=== PATIENT | female | born 2000 | race Caucasian/White ===

== ENCOUNTER 2021-08-09 18:36 | Emergency (ER) | payer OTHER ==
[~2021-08-09 18:36] MED LIST: COLACE 100MG C100 MG PO; IBUPROFEN600 MG PO; LORTAB 5-325 M1 EACH PO; PRENATAL VITAM1 EAC8 PO
[2021-08-09 19:32] LABS: HEMOGLOBIN 11.4 gm/dl (12.3-15.3); RED BLOOD COUNT 3.62 M/UL (4.00-5.10)
[2021-08-09 19:41] LABS: BUN/CREATININE RATIO 13 (0-10)
== END 2021-08-09 21:20 | disposition left against medical advice (07) ==
LOC: EDSTATUS 18:36 → ER1 18:36
PROVIDERS: Emergency Medicine
DX: M54.6 Pain in thoracic spine (principal); M54.5 Low back pain; R10.9 Unspecified abdominal pain; F17.200 Nicotine dependence, unspecified, uncomplicated; V49.40XA Driver injured in collision with unspecified motor vehicles in traffic accident, initial encounter; Y92.410 Unspecified street and highway as the place of occurrence of the external cause
CPT/HCPCS: 71045; 72072; 80053; 81001; 85025; 93005; 99284; J7030; Q9967

== ENCOUNTER 2021-08-09 21:22 | Outpatient (CLI) | payer OTHER | END 2021-08-10 00:35 | disposition home or self-care (01) | LOC: GENOP 21:22 | DX: O9A.212 Injury, poisoning and certain other consequences of external causes complicating pregnancy, second trimester (principal); S30.1XXA Contusion of abdominal wall, initial encounter; Z3A.26 26 weeks gestation of pregnancy; V89.2XXA Person injured in unspecified motor-vehicle accident, traffic, initial encounter | CPT/HCPCS: G0463 ==

== ENCOUNTER 2021-09-30 05:24 | Outpatient (CLI) | payer OTHER | END 2021-09-30 11:07 | disposition home or self-care (01) | LOC: GENOP 05:24 | DX: O47.03 False labor before 37 completed weeks of gestation, third trimester (principal); O99.333 Smoking (tobacco) complicating pregnancy, third trimester; F17.210 Nicotine dependence, cigarettes, uncomplicated; O99.513 Diseases of the respiratory system complicating pregnancy, third trimester; J98.01 Acute bronchospasm; Z3A.33 33 weeks gestation of pregnancy | CPT/HCPCS: 59025; 81001; 96360; 96361; 96372; J0702; J3105; J7120 ==

== ENCOUNTER 2021-11-01 03:43 | Inpatient (IN) | payer OTHER ==
[~2021-11-01] VITALS: Ht 157.5 cm; Wt 71.2 kg
[2021-11-01] MEDS ORDERED: PRENATAL VITAM1 EAC3 PO (05:18)
[2021-11-01 05:37] LABS: HEMOGLOBIN 11.7 gm/dl (12.3-15.3); RED BLOOD COUNT 3.81 M/UL (4.00-5.10); WHITE BLOOD COUNT 11.1 K/UL (4.5-11.0)
[2021-11-02 05:51] LABS: HEMOGLOBIN 10.6 gm/dl (12.3-15.3)
[2021-11-02] MEDS ORDERED: COLACE 100MG C100 MG PO (12:00)
[2021-11-02] MEDS ORDERED: IBUPROFEN600 MG PO (12:00)
== END 2021-11-02 18:01 | disposition home or self-care (01) | DRG 807 ==
LOC: GENOP 03:43 → OB 05:00
PROVIDERS: Obstetrics & Gynecology; ADMIT Obstetrics & Gynecology
PROC: 10E0XZZ Delivery of Products of Conception, External Approach (ICD-10-PCS; principal; 2021-11-01)
PROC: 3E0234Z Introduction of Serum, Toxoid and Vaccine into Muscle, Percutaneous Approach (ICD-10-PCS; 2021-11-01)
DX: O42.92 Full-term premature rupture of membranes, unspecified as to length of time between rupture and onset of labor (principal); Z37.0 Single live birth; Z3A.38 38 weeks gestation of pregnancy; Z20.822 Contact with and (suspected) exposure to COVID-19; Z23 Encounter for immunization
CPT/HCPCS: 36415; 81001; 83518; 85014; 85018; 85025; 90707; 90715; J2590; J7120; U0002